=== PATIENT | female | born 1985 | race Caucasian/White ===

== ENCOUNTER 2017-02-04 00:22 | Inpatient (IN) | payer MEDICAID, OTHER ==
[~2017-02-04] VITALS: Ht 166.4 cm; Wt 88.5 kg
[2017-02-04] MEDS: Lactated Ringer's 1,000 ML IV SCH (08:44)
[2017-02-04] MEDS ORDERED: Lactated Ringer's 1,000 ML IV PRN (08:46)
[2017-02-04] MEDS ORDERED: fentaNYL-PF 50 mCg/mL 2 mL Inj IVPUSH PRN (08:50)
[2017-02-04] MEDS ORDERED: Sodium Chloride LOK Flush 10 mL Syringe IVFLUSH PRN (08:50)
[2017-02-04] MEDS ORDERED: Methylergonovine 0.2 mg/mL Inj IM PRN (08:50)
[2017-02-04] MEDS ORDERED: Oxytocin 30 Units/500 mL LR 30 UNITS in IV Premix 1 EACH IV PRN (08:50)
[2017-02-04] MEDS ORDERED: Hemorrhage Kit, Post Partum XX ONE (08:50)
[2017-02-04] MEDS ORDERED: Oxytocin 10 Unit/mL Inj IM PRN (08:50)
[2017-02-04] MEDS ORDERED: Carboprost 250 mCg/mL Inj IM PRN (08:50)
[2017-02-04] MEDS ORDERED: Ondansetron 2 mg/mL 2 mL Inj IVPUSH PRN (08:50)
[2017-02-04 08:53] LABS: Mean Corpuscular Hemoglobin 27.6 pg (27.0-35.0); Mean Corpuscular Volume 86.2 fL (81-100)
--- NOTE | 2017-02-04 09:12 | NUR ---
received SW referral. advised SYSTEM ANALYST.
--- NOTE | 2017-02-04 11:15 | HP ---
[address] [address] HISTORY AND PHYSICAL PATIENT: ALF LANDEROS : 1985 MR#: [id number] ADMIT: 02/04/2017 JOB ID: [id number] CHIEF COMPLAINT: The patient presented for scheduled induction of labor. HISTORY OF PRESENTING ILLNESS: This is a 31-year-old, 5, para 2-0-2-2, at 40 weeks and 4 days by expected date of delivery of January 31, 2017, dated by last menstrual period consistent with 37-week ultrasound. complicated with late care. First visit was January 15, 2017. Two vessels cord, cannot rule out trisomy secondary to a limited anatomy scan and late care with no quad screen, but no gross anomalies appreciated besides the two-vessel cord as per maternal medicine scan. Smoker of 1/2 pack per day for 15 years. Marijuana use during . History of alcohol exposure early in the , quit at June 2016, approximately at two months of gestation. Elevated 1 hour glucose screening borderline at 135. Three hours glucose screening within normal limits. Desires tubal ligation. Signed tubal consent late on January 25, 2017. Plan for interval tubal ligation at eight weeks or later. Induction of labor was recommended at 39 weeks as per M but patient missed her care visit and was contacted 02/02/17 to be scheduled for Induction for next available appointment. The patient presented today for the scheduled induction, with no complaint. Good movement. No vaginal bleeding. No loss of fluid. Some irregular contractions. PAST OBSTETRIC HISTORY: 1. First was a spontaneous at 6-7 weeks of gestation. 2. Second was 2008, term, vaginal delivery at 38 weeks and 2 days. Length of labor was 1 hour. Male infant, 7.41 pounds. Delivery was at [place]. The patient delivered 1 hour after artificial rupture of membranes. 3. Third was an elective termination of at approximately eight weeks with suction D and C. 4. Fourth was in 2014, term vaginal delivery under epidural anesthesia. Female infant, 8.6 pounds, in [place]. She had no care during that . 5. Fifth is the current . GYNECOLOGIC HISTORY: Menarche at age 16. Regular. She was not on any control at the time of her last menstrual period. She is sure about the date of her last menstrual period being April 26, 2016. History of abnormal Pap smear approximately 10 years ago. She did have a colposcopies in the past but she has never had any treatment. No LEEP or cone biopsies. PAST MEDICAL HISTORY: History of chronic knee pain and history of restless leg syndrome. PAST SURGICAL HISTORY: Tonsillectomy, complicated with postop bleeding. MEDICATION: vitamins. ALLERGIES: No known allergies. FAMILY HISTORY: Mother's history is unknown. Father: History of bursitis, and history of hip replacement. Sister is healthy. No history of congenital disease or mental disease. REVIEW OF SYSTEMS: A 10-point review of system is negative except for the items mentioned in the history of presenting illness. PHYSICAL EXAMINATION: Vital signs: Blood pressure 122/74, heart rate 98, temperature 36.1. heart tones baseline 130, moderate variability, positive accelerations, no decelerations. Roann no contractions. General: Alert, oriented to time, place, and person. Head: Normocephalic, atraumatic. Neck: Supple. Chest: Equal air entry bilaterally. No added sounds. Cardiovascular: Regular rate and rhythm. S1 plus S2 plus zero. Abdomen is gravid. No tenderness. Lower extremities: +1 edema bilaterally. Deep tendon reflexes +2 bilaterally.Singh score of 1. Cervix dilatation is 0, and 30% effaced, -3 station, medium and posterior LABORATORIES: labs: Blood type is O positive. Rubella immune. RPR nonreactive. Hepatitis B surface antigen nonreactive. HIV nonreactive. Antibody screening is negative. Group B strep negative on January 15, 2017. Hemoglobin A1c is 5.4. One hour glucose screening 135, 3 hrs GTT WNL. Pap smear WNL 01/25/17 , GC/CT screen negative 01/25/17. IMAGING: Ultrasound at [facility] on January 29, 2017: Estimated weight is 3488 g at the 43rd percentile, RONY 16 cm and cephalic presentation. ASSESSMENT: This is a 31-year-old, 5, para 2-0-2-2, at 40 weeks and 4 days. 1. Induction of labor for late term and two-vessel cord. Cannot 2. rule out trisomy. Singh score of 1. 3. Late care. 4. Smoker. 5. Marijuana use. PLAN: Risks, benefits, and alternatives of induction of labor were discussed with the patient in detail. The patient desires to proceed with induction of labor. Informed consent was signed. Will start with Cervidil for cervical ripening. MTDD
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
[2017-02-05] MEDS: Lactated Ringer's 1,000 ML IV SCH ×4 (08:44→16:44)
[2017-02-05] MEDS ORDERED: Lactated Ringer's 1,000 ML IV SCH ×2 (12:28→17:19)
[2017-02-05] MEDS ORDERED: Lactated Ringer's 500 ML IV ONE (12:28)
[2017-02-05] MEDS ORDERED: Nalbuphine 10 mg/mL Inj IV PRN (12:30)
[2017-02-05] MEDS ORDERED: Ondansetron 2 mg/mL 2 mL Inj IVPUSH PRN (12:30)
[2017-02-05] MEDS ORDERED: Atropine 1 mg/10 mL (Code) Syringe IVPUSH PRN (12:30)
[2017-02-05] MEDS ORDERED: EPHEDrine Sulfate 50 mg/mL Inj IVPUSH PRN (12:30)
[2017-02-05] MEDS ORDERED: fentaNYL 2 mCg/mL-Bupiv 0.125% 100 ML EPIDURAL SCH (12:30)
--- NOTE | 2017-02-05 13:11 | PCM.HPANE ---
Patient Data Date of Service: Feb 05, 2017 Surgeon Admitting Provider:Torie Mancia MD Attending Provider:Torie Mancia MD Primary Care Physician:Tri Mancera MD Other Provider:Que Alvarado Anesthesia Reason for Visit Induction Ht/WT & BMI Body Mass Index Allergies Coded Allergies: No Known Allergies (Unverified , 02/05/17) Past Anesthesia History Anesthesia History: Denies:: Anesthesia Reactions History History of ENT Problems?: No HEENT History: Denies:: Abnormal Airway Denture Type: None Teeth Condition: Within Normal Limits Hx of Heart Problems?: No Cardiovascular History: Denies:: Chest Pain Hx of Respiratory Problem?: No (smoker) Respiratory History: Denies:: Asthma Hx Neurologic Problems?: No Neurological History: Denies:: Dementia Hx of GI Problems?: No Gastrointestinal History: Denies:: Cirrhosis Hx of Problems?: No Genitourinary History: Denies:: HX of Hemodialysis HX of Peritoneal Dialysis: No Female Hx: Positive for:: Currently Hx Musculoskeletal Problems?: No Musculoskeletal History: Denies:: Back Injury Hx of Psycho/Social Problems?: No Psycho Social History: Denies:: Anxiety Hx Surgeries?: No Hx Any Other Health Problems?: No Stop/Bang Risk Assessment Category Category 1A: Patient has history of documented sleep apnea, and HAS NOT received any narcotic, sedative or anesthesia administration during this stay. Category 1B: Patient has history of documented sleep apnea, and HAS received any narcotic , sedative or anesthesia administration during this stay Category 2: Patient has SUSPECTED Obstructive Sleep Apnea, and HAS received any narcotic , sedative or anesthesia administration during this stay. Category 3: Patient has SUSPECTED Obstructive Sleep Apnea and HAS NOT received narcotic, sedative or anesthesia administration during this stay. Category 4: Outpatient in Procedural Areas with known sleep apnea or who screen positive for High Risk via the STOP/BANG questionnaire. Exam Exam Vital Signs reviewed vitals with RN charting, no abnormalities bp 137/75 hr 93 rr20 98%ra afebrile General Appearance: Alert, Oriented X3 HEENT/AIRWAY: MP 2 Lungs: Clear to Auscultation Heart: Regular Rate/Rhythm Meds/Labs/Diagnostics Admission Meds Current Medications Dinoprostone (Cervidil Vaginal Insert) 10 mg ONCE ONCE VAGINAL Last administered on 02/04/17t 23:06; Start 02/04/17 at 22:50; Stop 02/04/17 at 22:51 ; Status DC Labs Test 02/04/17 08:25 02/04/17 08:45 02/04/17 08:48 White Blood Count 7.0th/mm3 (3.8-10.1) Red Blood Count 4.50mil/mm3 (3.90-5.20) Hemoglobin 12.4g/dL (12.0-15.6) Hematocrit 38.8% (35.0-46.0) Mean Corpuscular Volume 86.2fL (81-100) Mean Corpuscular Hemoglobin 27.6pg (27.0-35.0) Mean Corpuscular Hemoglobin Concent 32.0% (32.0-37.0) Red Cell Distribution Width 14.1% (12.3-15.4) Platelet Count 282bil/L (150-400) Urine Opiates Screen Negative Urine Methadone Screen Negative Urine Barbiturates Screen Negative Urine Amphetamines Screen Negative Urine Benzodiazepines Screen Negative Urine Cocaine Metabolite Screen Negative Urine Cannabinoids Screen Positive Hold Urine Received (Received) Plan Impression Patient chart reviewed, patient interviewed and anesthestic plan with risks, benefits, and alternatives discussed, and informed consent obtained. ASA Physical Status: ASA2 Mod Systemic Disease Anesthetic Plan: Epidural Bene/Risks/Altern/Consents: Yes (including: headache, backpain, nerve injury, bleeding, infection, severe respiratory/cardiovascular insufficiency) HP Complete Prior to Induction: Yes Avtar Mckeon MD Feb 05, 2017 12:27
--- NOTE | 2017-02-05 13:49 | PCM.PNOBIP ---
Subjective Date of Service Feb 05, 2017 Pain Management: Epidural Group B Strep Results: Negative Rubella: Immune Blood Type: O RH Type: Positive Labs Laboratory Tests 02/04/17 08:25: White Blood Count 7.0, Red Blood Count 4.50, Hemoglobin 12.4, Hematocrit 38.8, Mean Corpuscular Volume 86.2, Mean Corpuscular Hemoglobin 27.6, Mean Corpuscular Hemoglobin Concent 32.0, Red Cell Distribution Width 14.1, Platelet Count 282 Exam Vital Signs Vital Signs Contraction frequency in minutes: MVUs: Vital Signs: VS reviewed, stable Heart Tracings Heart Tones Baseline 120 bpm Heart Rate Variability: Moderate Heart Rate Accelleration: Present Heart Rate Deceleration: Absent Heart Rate Category: I Tocometry/IUPC Contraction frequency in minutes: MVUs: Sterile Vaginal Exam as per RN Cervical Dilation: 5 cms Cervical Effacement: 100 % Exam General: Alert, Oriented X3 OB Intrapartum Assessment/Plan Assessment This is a 31-year-old, 5, para 2-0-2-2, at 40 weeks and 4 days. 1. Induction of labor for late term and two-vessel cord. Cannot rule out trisomy. Singh score of 1. S/P cervidil, now on Pitocin. on Epidural 2. Late care. 3. Smoker. 4. Marijuana use. Torie Mancia MD Feb 05, 2017 13:49
[2017-02-05] MEDS ORDERED: Sodium Chloride LOK Flush 10 mL Syringe IVFLUSH SCH (16:30)
[2017-02-05] MEDS ORDERED: Methylergonovine 0.2 mg/mL Inj IM PRN (17:20)
[2017-02-05] MEDS ORDERED: Benzocaine (Dermoplast) 20% 60 Gm Spray TOPICAL PRN (17:20)
[2017-02-05] MEDS ORDERED: Hemorrhage Kit, Post Partum XX ONE (17:20)
[2017-02-05] MEDS ORDERED: oxyCODONE-Acetamin 5-325 mg Tablet PO PRN (17:20)
[2017-02-05] MEDS ORDERED: Oxytocin 30 Units/500 mL LR 30 UNITS in IV Premix 1 EACH IV PRN (17:20)
[2017-02-05] MEDS ORDERED: Carboprost 250 mCg/mL Inj IM PRN (17:20)
[2017-02-05] MEDS ORDERED: LANOlin HPA 7 Gm Ointment TOPICAL PRN (17:20)
[2017-02-05] MEDS ORDERED: Oxytocin 10 Unit/mL Inj IM PRN (17:20)
[2017-02-05] MEDS ORDERED: Witch Hazel-Glycerin Pads TOPICAL PRN (17:20)
[2017-02-05] MEDS ORDERED: Ascorbic Acid 500 mg Tablet PO SCH (17:30)
--- NOTE | 2017-02-05 21:33 | OP ---
[address] [address] OPERATIVE REPORT PATIENT: ALF LANDEROS : 1985 MR#: [id number] ADMIT: 02/04/2017 JOB ID: [id number] DATE OF SURGERY: 02/05/2017 SURGEON: Torie Mancia MD PREOPERATIVE DIAGNOSIS(ES): 1. Intrauterine at 40 weeks and 5 days. 2. Two vessel cord. 3. Cannot rule out Trisomy. 4. Late to care. 5. Smoker and marijuana use during . POSTOPERATIVE DIAGNOSIS(ES): 1. Intrauterine at 40 weeks and 5 days. 2. Two vessel cord. 3. Cannot rule out Trisomy. 4. Late to care. 5. Smoker and marijuana use during . PROCEDURE: Normal vaginal delivery with no laceration. ESTIMATED BLOOD LOSS: 200 mL. ANESTHESIA: Epidural. COMPLICATIONS: None. OUTCOME: Female , delivered, in left occiput anterior position. No nuchal cord. Shoulders delivered without difficulty. Clear amniotic fluid, late passage of meconium. Apgars 8 at 1 minute and 9 at 5 minutes respectively. Weight pending. PROCEDURE IN DETAIL: This is a 31-year-old, 5, now para 3-0-2-3 who was admitted at 40 weeks and 4 days gestation for induction of labor for late term with two-vessel cord. Cannot rule out Trisomy. The patient was scanned by [facility]. No evidence of other anomalies was identified. The scan was limited by advanced gestational age. Scan was performed on January 29, 2017. Estimated weight was 3488 g at 43rd percentile with RONY of 16 cm. Patient missed her follow-up visit at 39 weeks and was called in for induction of labor and was scheduled in the next available appointment on February 04, 2017. At presentation, cervix was closed, 30% effaced, -3 station, medium consistency and posterior position with Singh score of 1. Cervidil was placed for cervical ripening and was removed after 12 hours. Cervix found to be still 0 cm dilated. Another Cervidil was placed. Then, spontaneous rupture of membranes occurred at 00:14 on February 05, 2017. Cervidil was removed at 8 a.m. Pitocin was started at 9:13 a.m. Cervix was 1 cm, 40%, -3. At 12:45 p.m., patient requested an epidural and she was 3 cm. Epidural was placed without complication. Then, at 1:07 p.m., cervix was 5 cm, 100% effaced, and -2 station. Then, the patient dilated to 7 cm at 13:56 and reassessment again at 15:00, cervix remained at 7 cm and 100% and -2 with a bulging bag of water. That forebag was ruptured. Clear fluid was noted. Then, patient was found to be completely dilated at 16:22 with pelvic pressure and urge to push. She pushed effectively to deliver at 16:56 a female infant in cephalic presentation in left occiput anterior position with no nuchal cord. Shoulders delivered without difficulty. Infant was placed on the maternal abdomen. Delayed cord clamp was performed after 1 minute. Apgars were 8 and 9 at one and five minutes respectively. Cord segment was collected for gases. Then, cord blood was collected for typing. Placenta was delivered intact at 17:05 with a two-vessel cord. Perineum was examined with no laceration and no repair needed. Uterus was firm. Oxytocin was started after delivery of the placenta. All instrument, needles and sponge counts were correct x2. The patient and infant were recovering in the delivery room in a stable condition. Torie Kenney MD, was present and scrubbed for and performed the entire delivery. [facility]ALTH[facility]
[2017-02-06 06:42] LABS: Mean Corpuscular Hemoglobin 28.4 pg (27.0-35.0); Mean Corpuscular Volume 85.2 fL (81-100)
[2017-02-06] MEDS ORDERED: IBUP-1827 PO (09:44)
[2017-02-06] MEDS ORDERED: DOCU-41 PO (09:44)
[2017-02-06] MEDS ORDERED: NICO1PAT35 TD (09:44)
[2017-02-06] MEDS ORDERED: Lanolin TOPICAL (09:44)
--- NOTE | 2017-02-06 09:46 | PCM.DIOB ---
Obstetrical Disch Instruction Date of Service: Feb 06, 2017 Dates of Hospitalization Date of Hospital Admission Feb 04, 2017 at 06:42 Providers Admitting Physician: Torie Mancia MD Primary Care Physician: Tri Mancera MD Attending Physician: Torie Mancia MD Discharge Diagnosis Discharge Diagnosis status post Normal Vaginal Delivery Problems: Diet Discharge Diet: No restrictions Activity Discharge Activity-General: Pelvic Rest for 6 weeks (no sex, douching or tampons ), Balance rest and activity, No lifting >10 pounds for 4-6 weeks Dressing and Incisional Care Hygiene: May shower, Perineal care, Sitz bath Follow Up Plan Follow-up Provider (F9): Torie Mancia MD Follow-up appointment: Weeks (1-2 ) Call your provider for: Fever or Chills, Shortness of breath, Heavy vaginal bleeding, Heavy bleeding, Epigastric pain, Excessive constipation, Vaginal discomfort, Red painful breasts, Other (headache, change in vision, leg swelling , pain or redness ) Torie Mancia MD Feb 06, 2017 09:46
--- NOTE | 2017-02-06 09:47 | PCM.DC.OB ---
Obstetrical Discharge Summary Date of Service Feb 06, 2017 Date of hospital admission Feb 04, 2017 at 06:42 Date of Discharge: Feb 06, 2017 Providers Admitting Physician: Halima Alejandro MD Primary Care Physician: Tri Mancera MD Attending Physician: Halima Alejandro MD Diagnosis at Time of Discharge Status post normal vaginal delivery Problems: Hospital Course: This is a 31-year-old, 5, now para 3-0-2-3, was admitted at 40 weeks and 4 days for induction of labor as recommended by [facility] at 39 weeks but patient missed her care visit after [facility] visit and was contacted to be scheduled for Induction for next available appointment. Status post normal vaginal delivery on 02/05/17. complicated with: 1. late care. First visit was January 15, 2017. 2. Two vessels cord, cannot rule out trisomy secondary to a limited anatomy scan and late care with no quad screen, but no gross anomalies appreciated besides the two-vessel cord as per maternal medicine scan. 3. Smoker of 1/2 pack per day for 15 years. Marijuana use during . 4. History of alcohol exposure early in the , quit at June 2016, approximately at two months of gestation. 5. Elevated 1 hour glucose screening borderline at 135. Three hours glucose screening within normal limits. 6.Desires tubal ligation. Signed tubal consent late on January 25, 2017. Plan for interval tubal ligation at eight weeks or later. OUTCOME: Female 3888g 05/29. NICU admission for desating , ECHO pending. See delivery note for details. DISCHARGE DAY EXAM: day number 1, patient is ambulating, tolerating regular diet without nausea or vomiting and voiding without difficulty. Pain was well controlled. No chest pain, no headache or change in vision. VS: BP 130/73 HR 85 Respirations 17 Temp 36.7 General: Alert, Oriented X3 Lungs: Clear to Auscultation, Clear to Percussion Heart: Regular Rate/Rhythm, Normal S1, Normal S2 Abdomen: Fundus firm Incision Healing, No Erythema, No Discharge Extremities: No tenderness/swelling, Edema 1+ Lochia: normal. LABS: CBC Test 02/06/17 06:20 White Blood Count 10.0th/mm3 (3.8-10.1) Red Blood Count 4.05mil/mm3 (3.90-5.20) Hemoglobin 11.5g/dL (12.0-15.6) Hematocrit 34.5% (35.0-46.0) Mean Corpuscular Volume 85.2fL (81-100) Mean Corpuscular Hemoglobin 28.4pg (27.0-35.0) Mean Corpuscular Hemoglobin Concent 33.3% (32.0-37.0) Red Cell Distribution Width 13.9% (12.3-15.4) Platelet Count 254bil/L (150-400) labs: Blood type is O positive. Rubella immune. RPR nonreactive. Hepatitis B surface antigen nonreactive. HIV nonreactive. Antibody screening is negative. Group B strep negative on January 15, 2017. Hemoglobin A1c is 5.4. One hour glucose screening 135, 3 hrs GTT WNL. Pap smear WNL 01/25/17 , GC/CT screen negative 01/25/17. Disposition: home. Discharge Condition: stable. Diet Discharge Diet: No restrictions Activity Discharge Activity-General: Pelvic Rest for 6 weeks (no sex, douching or tampons ), Balance rest and activity, No lifting >10 pounds for 4-6 weeks Dressing and Incisional Care Hygiene: May shower, Perineal care, Sitz bath Follow Up Plan Follow-up Provider (F9): Halima Alejandro MD Follow-up appointment: Weeks (1-2 ) Call your provider for: Fever or Chills, Shortness of breath, Heavy vaginal bleeding, Heavy bleeding, Epigastric pain, Excessive constipation, Vaginal discomfort, Red painful breasts, Other (headache, change in vision, leg swelling , pain or redness ) ([Lanolin]) 2 APPLIC/GM OINT 1 APPLIC TOPICAL PRN PRN PRN apply to nipples Prescribed by: HALIMA ALEJANDRO MD Docusate Sodium (Colace) 100 Mg Capsule 100 MG PO DAILY Prescribed by: HALIMA ALEJANDRO MD Ibuprofen (Ibuprofen) 600 Mg Tablet 600 MG PO Q6H PRN PRN For Mild Pain Prescribed by: HALIMA ALEJANDRO MD Nicotine (Nicoderm Cq 21 mg/24 hr) 1 Each Patch.td24 1 EACH TD DAILY Prescribed by: MD Blanche OSEI Omaima A MD Feb 06, 2017 09:47
[2017-02-06 09:59] VITALS: BP 130/73; PULSE 85; RESP 17
--- NOTE | 2017-02-08 13:57 | PATH ---
SURGICAL PATHOLOGY Attending Physician:Torie Mancia CASE STATUS: Signed Out PATIENT NAME: ALF LANDEROS PID: [id number] : 1985 DATE COLLECTED:02/04/2017 00:00 SPECIMEN: Placenta CLINICAL HISTORY: TWO VESSLES CORD PLACENTA 1). PLACENTA FINAL DIAGNOSIS: 1.PLACENTA WITH UMBILICAL CORD AND MEMBRANES: 1. PLACENTA: 567 GRAMS, WHICH IS APPROXIMATELY THE 75TH PERCENTILE FOR 40 WEEKS 5 DAYS GESTATION. NEGATIVE FOR EVIDENCE OF INFARCTION. NEGATIVE FOR SIGNIFICANT VASCULAR LESIONS. NEGATIVE FOR SIGNIFICANT INFLAMMATION. 2.UMBILICAL CORD: 17.9 CM IN LENGTH WITH ATTACHMENT 8.0 CM FROM THE PLACENTAL EDGE. CORD CONTAINS TWO BLOOD VESSELS (SINGLE ARTERY AND SINGLE VEIN). NEGATIVE FOR SIGNIFICANT INFLAMMATION. 3. MEMBRANES: RUPTURED 2.1 CM FROM THE FREE PLACENTAL EDGE. NEGATIVE FOR SIGNIFICANT INFLAMMATION. ICD10 CODE Q27.0 GROSS DESCRIPTION: The specimen is received in formalin, labeled with the patient's name and consists of an intact placenta and includes placental disc (567 g, 20.4 x 17.3 x 3.4 cm), umbilical cord (length-17.9 cm, diameter-1.2 x 1.1 cm) and membranes. The membranes are ruptured 2.1 cm from the free edge of the placenta and are lamb-pederson and semi-translucent. The umbilical cord is attached 8.0 cm from the edge of the placenta and contains 2 vessels. The surface is smooth and shiny with no evidence of meconium identified. The maternal surface is dark maroon with normal cotyledon formation. The placental disc is spongy with no hematomas, infarcts, nodules, masses, or lesions identified. Section code: (A) edge of placenta with membranes, umbilical cord; (B-C, D-E, F) placenta, 3 full thickness sections. 02/07/17 MICRO DESCRIPTION: See diagnosis. ICD-9 CODES: CPT CODES: 1: 63651 Electronically Signed Out Kd Huerta MD [facility] [address], [place] [address] Technical component performed at [facility], [address], [place], [address]
== END 2017-02-06 16:05 | disposition home or self-care (01) | DRG 775 ==
LOC: FBC 06:42
PROVIDERS: ADMIT Obstetrics & Gynecology; ATTEND Obstetrics & Gynecology
PROC: 3E033VJ Introduction of Other Hormone into Peripheral Vein, Percutaneous Approach (ICD-10-PCS; 2017-02-04)
PROC: 10H07YZ Insertion of Other Device into Products of Conception, Via Natural or Artificial Opening (ICD-10-PCS; 2017-02-04)
PROC: 10E0XZZ Delivery of Products of Conception, External Approach (ICD-10-PCS; principal; 2017-02-05)
DX: O48.0 Post-term pregnancy (principal); O99.324 Drug use complicating childbirth; O99.334 Smoking (tobacco) complicating childbirth; F17.200 Nicotine dependence, unspecified, uncomplicated; F12.90 Cannabis use, unspecified, uncomplicated; Z3A.40 40 weeks gestation of pregnancy; Z37.0 Single live birth